=== PATIENT | female | born 1960 | race Asian ===

== ENCOUNTER 2024-04-03 10:25 | Emergency (ER) | payer OTHER ==
[~2024-04-03] VITALS: Ht 157.5 cm; Wt 68.0 kg
[2024-04-03 10:25] VITALS: BP 151/84; PULSE 66; RESP 22; TEMP 98.6; O2SAT 95
[~2024-04-03 10:25] MED LIST: CEPH-588 PO; DOCU-299 PO; MIRABULK PO
[2024-04-03] MEDS: ACETAMINOPHEN EXTRA STRENGTH 500 MG TAB PO ONE (13:49)
[2024-04-03] MEDS: LIDOCAINE 5% 1 EA PATCH TP ONE (13:49)
[2024-04-03] MEDS ORDERED: ACET500T99 PO (13:50)
[2024-04-03] MEDS ORDERED: LID5T TP (13:50)
== END 2024-04-03 14:23 | disposition home or self-care (01) ==
LOC: MED 10:28
DX: S20.214A Contusion of middle front wall of thorax, initial encounter (principal); Z85.3 Personal history of malignant neoplasm of breast; Z87.442 Personal history of urinary calculi; Z79.899 Other long term (current) drug therapy; Z98.890 Other specified postprocedural states; V89.2XXA Person injured in unspecified motor-vehicle accident, traffic, initial encounter; Y93.89 Activity, other specified; Y92.89 Other specified places as the place of occurrence of the external cause; Y99.8 Other external cause status
CPT/HCPCS: 71045; 73030; 93005; 99284